=== PATIENT | female | born 1985 | race Caucasian/White ===

== ENCOUNTER 2019-11-12 22:56 | Emergency (ER) | payer OTHER ==
[~2019-11-12] VITALS: Ht 160 cm; Wt 45.4 kg
[2019-11-13] MEDS ORDERED: LORAZEPAM 0.5 MG TABLET PO ONE
[2019-11-13] MEDS ORDERED: LORAZEPAM 1 MG TABLET ONE (00:14)
[2019-11-13] MEDS ORDERED: ONDANSETRON 4 MG/2 ML VIAL IV ONE (00:30)
[2019-11-13] MEDS ORDERED: ONDANSETRON 4 MG/2 ML VIAL ONE (00:34)
[2019-11-13] MEDS ORDERED: IV NORMAL SALINE 1000 ML BAG IV ONE (00:45)
--- NOTE | 2019-11-13 00:47 | NUR ---
PT STATES: "CAN I HAVE A BANANA BAG? 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 ALSO, CAN YOU GUYS ADMIT ME TO YOUR DETOX CENTER?" ERMD AWARE PT REORIENTED PT KEPT CALM AND COMFORTABLE
--- NOTE | 2019-11-13 05:32 | NUR ---
PT ASLEEP BUT EASILY ROUSED RA NAD INTACT IV SALINE TO L AC G20 MONITORED ACCORDINGLY PENDING ETHYL ALCOHOL LABS AT 0600
--- NOTE | 2019-11-13 06:00 | NUR ---
PT STILL UNABLE TO PROVIDE URINE SAMPLE
--- NOTE | 2019-11-13 06:42 | NUR ---
IV DC, DRESSED.
--- NOTE | 2019-11-13 06:42 | NUR ---
Patient discharged to home in stable conditon. Written and verbal after care instructions given. Patient verbalizes understanding of instructions. AMBULATORY W/ STABLE GAIT ALL BELONGINGS W/ PT PT WILL BE PICKED UP BY "[facility]FF AT [place]
[2019-11-13 06:53] VITALS: BP 104/58
== END 2019-11-13 06:54 | disposition home or self-care (01) ==
LOC: EDBD 22:57 → ER 22:57
DX: F10.129 Alcohol abuse with intoxication, unspecified (principal)
CPT/HCPCS: 36415; 96374; 99283; G0480 ×2; J2405; A4663; J7030